=== PATIENT | female | born 1970 | race Asian ===

== ENCOUNTER 2020-07-27 04:43 | Inpatient (IN) | payer OTHER ==
[2020-07-26 15:08] VITALS: BMI 30.7
--- OUTSIDE RECORDS SUMMARY | 2020-07-27 04:48 | XMS ---
:1970 [facility] Care Team Providers Name Role Phone ED STAFF PHYSICIAN, STAFF Unavailable Unavailable ED STAFF PHYSICIANMIRELLA Unavailable Unavailable Re-disclosure Warning The records that you are about to access may contain information from federally- assisted alcohol or drug abuse programs. If such information is present, then the following federally mandated warning applies: This information has been disclosed to you from records protected by federal confidentiality rules (42 CFR part 2). The federal rules prohibit you from making any further disclosure of this information unless further disclosure is expressly permitted by the written consent of the person to whom it pertains or as otherwise permitted by 42 CFR part 2. A general authorization for the release of medical or other information is NOT sufficient for this purpose. The Federal rules restrict any use of the information to criminally investigate or prosecute any alcohol or drug abuse patient.The records that you are about to access may contain highly sensitive health information, the redisclosure of which is protected by Article 27-F of the [place] State Public Health law. If you continue you may haveaccess to information: Regarding HIV / AIDS; Provided by facilities licensed or operated by the [place] Office of Mental Health; or Provided by the [place] Office for People With Developmental Disabilities. If such information is present, then the following [place] mandated warning applies: This information has been disclosed to you from confidential records which are protected by state law. State law prohibits you from making any further disclosure of this information without the specific written consent of the person to whom it pertains, or as otherwise permitted by law. Any unauthorized further disclosure in violation of state law may result in a fine or longterm sentence or both. A general authorization for the release of medical or other information is NOT sufficient authorization for further disclosure. Encounters Encounter Providers Location Date Indications Data Source(s ) Emergency Attender: MIRELLA ED H 01/30/2020 [facility] STAFF 10:35:00 AM EDT Medical C enter PHYSICIANAttender: - 01/30/2020 STAFF ED STAFF 01:25:00 PM EDT PHYSICIANAdmitter: MIRELLA ED STAFF PHYSICIAN Patient discharged. Insurance Providers Payer name Policy type Policy ID Covered Covered libertarian's Policy P zak / Coverage libertarian ID relationship to [facility] orm[facility] type s[facility] LOCAL [id number] - [id number] SP [id number] [facility] [id number] - [id number] SP [id number] [facility] [id number] O [id number] 22 Problems, Conditions, and Diagnoses Code Display Name Description Problem Type Effective Dates Data Source(s) R05 Cough COUGH Diagnosis 01/30/2020 [facility] 10:35:00 AM EDT Medical C enter R50.9 Fever, unspecified FEVER, Diagnosis 01/30/2020 [facility] UNSPECIFIED 10:35:00 AM EDT Medical Center Z00.00 Encounter for ENCNTR FOR Diagnosis 01/30/2020 [facility] adult GENERAL ADULT 10:35:00 AM EDT [facility] medical MEDICAL EXAM W/O examination ABNORMAL FINDINGS without abnormal findings Results ID Date Data Source [id number] 07/22/2020 11:40:00 AM EDT [facility] Name Value Range Interpretation Description Data Sup porting Code Source(s) Document(s ) SARS [facility] coronavirus 2 RNA This lab was ordered by [facility] and reported by [facility]. ID Date Data Source [id number] 07/21/2020 11:17:00 AM EDT [facility] Name Value Range Interpretation Code Description Data Mandie rce(s) Supporting Document(s ) [facility] SARS-CoV-2 TMA PCR [facility] and reported by [facility]. ID Date Data Source [id number] 07/16/2020 10:15:00 AM EDT [facility] Name Value Range Interpretation Description Data Sup porting Code Source(s) Document(s ) SARS [facility] coronavirus 2 RNA This lab was ordered by [facility] and reported by [facility]. ID Date Data Source [id number] 07/07/2020 08:21:00 AM EDT [facility] Name Value Range Interpretation Code Description Data Mandie rce(s) Supporting Document(s ) HOLOGIC [facility] SARS-CoV-2 TMA PCR This lab was ordered by SHELDON YOU[facility] and reported by [facility]. ID Date Data Source [id number] 06/30/2020 10:44:00 AM EDT [facility] Name Value Range Interpretation Code Description Data Mandie rce(s) Supporting Document(s ) HOLOGIC [facility] SARS-CoV-2 TMA PCR This lab was ordered by SHELDON YOUNG and reported by [facility]. ID Date Data Source [id number] 06/23/2020 11:38:00 AM EDT [facility] Name Value Range Interpretation Code Description Data Mandie rce(s) Supporting Document(s ) HOLOGIC [facility] SARS-CoV-2 TMA PCR This lab was ordered by SHELDON YOUNG and reported by [facility]. ID Date Data Source [id number] 06/18/2020 12:00:00 PM EDT [facility] Name Value Range Interpretation Code Description Data Mandie rce(s) Supporting Document(s ) HOLOGIC [facility] SARS-CoV-2 TMA PCR This lab was ordered by SHELDON YOUNG and reported by [facility]. ID Date Data Source [id number] 06/09/2020 10:53:00 AM EDT [facility] Name Value Range Interpretation Code Description Data Mandie rce(s) Supporting Document(s ) HOLOGIC [facility] SARS-CoV-2 TMA PCR This lab was ordered by SHELDON YOUNG and reported by [facility]. ID Date Data Source [id number] 06/02/2020 10:35:00 AM EDT [facility] Name Value Range Interpretation Code Description Data Mandie rce(s) Supporting Document(s ) HOLOGIC [facility] SARS-CoV-2 TMA PCR This lab was ordered by ARCHSTEPH[facility] and reported by [facility]. ID Date Data Source [id number] 05/26/2020 10:36:00 AM EDT [facility] Name Value Range Interpretation Code Description Data Mandie rce(s) Supporting Document(s ) HOLOGIC [facility] SARS-CoV-2 TMA PCR This lab was ordered by [employer]ISA[facility] YOUNG and reported by [facility]. ID Date Data Source [id number] 05/12/2020 10:35:00 AM EDT [facility] Name Value Range Interpretation Code Description Data Mandie rce(s) Supporting Document(s ) SARS-CoV-2 [facility] , RNA This lab was ordered by [facility] and reported by [facility]. ID Date Data Source [id number] 05/05/2020 10:35:00 AM EDT [facility] Name Value Range Interpretation Code Description Data Mandie rce(s) Supporting Document(s ) SARS-CoV-2 [facility] , RNA This lab was ordered by [facility] and reported by [facility]. ID Date Data Source [id number] 04/28/2020 10:40:00 AM EDT [facility] Name Value Range Interpretation Code Description Data Mandie rce(s) Supporting Document(s ) SARS-CoV-2 [facility] , RNA This lab was ordered by [employer]ISAAC YOUNG and reported by [facility]. ID Date Data Source [id number] 04/21/2020 11:35:00 AM EDT [facility] Name Value Range Interpretation Code Description Data Mandie rce(s) Supporting Document(s ) SARS-CoV-2 [facility] , RNA This lab was ordered by [facility] and reported by [facility]. ID Date Data Source [id number] 04/14/2020 11:22:00 AM EDT [facility] Name Value Range Interpretation Code Description Data Mandie rce(s) Supporting Document(s ) SARS-CoV-2 [facility] , RNA This lab was ordered by [facility] and reported by [facility]. ID Date Data Source [id number] 03/28/2020 11:52:00 AM EDT [facility] Name Value Range Interpretation Code Description Data Mandie rce(s) Supporting Document(s ) SARS-CoV-2 [facility] , RNA This lab was ordered by [facility] [facility] and reported by [facility]. ID Date Data Source [id number] 03/24/2020 11:50:00 AM EDT [facility] Name Value Range Interpretation Code Description Data Mandie rce(s) Supporting Document(s ) SARS-CoV-2 [facility] , RNA This lab was ordered by [facility] [facility] and reported by [facility]. ID Date Data Source [id number] 03/20/2020 12:00:00 PM EDT [facility] Name Value Range Interpretation Code Description Data Mandie rce(s) Supporting Document(s ) SARS-CoV-2 [facility] , RNA This lab was ordered by [facility] and reported by [facility]. ID Date Data Source [id number] 03/17/2020 11:44:00 AM EDT [facility] Name Value Range Interpretation Code Description Data Mandie rce(s) Supporting Document(s ) SARS-CoV-2 [facility] , RNA This lab was ordered by [facility] and reported by [facility]. ID Date Data Source [id number] 03/10/2020 04:44:00 AM EDT [facility] Name Value Range Interpretation Code Description Data Mandie rce(s) Supporting Document(s ) SARS-CoV-2 [facility] , RNA This lab was ordered by [facility] and reported by [facility]. ID Date Data Source [id number] 01/30/2020 12:00:00 AM EDT [facility] Name Value Range Interpretation Code Description Data Mandie rce(s) Supporting Document(s ) 2019-nCoV [facility] RNA XXX FABRICIO+probe- Imp This lab was ordered by [facility] and reported by [employer] Procedure Social History Code Duration Value Status Description Data Source(s ) Smoking 01/30/2020 Denies Ever completed Denies Ever Smoked [facility] 11:19:00 AM EDT Smoked Medical C enter Smoking 01/30/2020 Denies Ever completed Denies Ever Smoked [facility] 10:56:00 AM EDT Smoked Medical C enter Smoking 01/30/2020 Denies Ever completed Denies Ever Smoked [facility] 10:41:00 AM EDT Smoked Medical C enter Vital Signs ID Date Data Source UNK Name Value Range Interpretation Code Description Data Source(s) Body weight 65.428601 kg 65.480979 kg [facility] Body temperature 36.310097 36.531088 [facility] Respiratory rate 18 /min 18 /min [facility] Oxygen saturation 100 % 100 % [facility] Jason burch in Arterial blood [facility] by Pulse oximetry Heart rate 99 /min 99 /min [facility] Body height 147.450359 147.346876 cm [facility] cm [facility] Center Diastolic blood 97 mm[Hg] 97 mm[Hg] [facility] pressure [facility] Center Systolic blood 146 mm[Hg] 146 mm[Hg] [facility] pressure [facility] Body mass index 30.3 kg/m2 30.3 kg/m2 [facility] ephs (BMI) [Ratio] Medical Preethi ter
--- NOTE | 2020-07-27 07:20 | HP ---
History & Physical Update - History History: No Change - Physical Physical: No Change - Assessment Assessment: No Change - Plan Plan: No Change (H&P reviwed , no changes)
[2020-07-27] MEDS ORDERED: DEXAMETHASONE SOD PHOSPHATE/PF 10 MG/ML SDV ONE (07:36)
[2020-07-27] MEDS ORDERED: MIDAZOLAM HCL 2 MG/2 ML SINGLE DOSE VIAL ONE ×3 (10:00→11:34)
[2020-07-27] MEDS ORDERED: ROCURONIUM BROMIDE 100 MG/10 ML VIAL ONE ×2 (11:34→12:35)
[2020-07-27] MEDS ORDERED: fentaNYL CITRATE 250 MCG/5 ML VIAL ONE (11:34)
[2020-07-27] MEDS ORDERED: PROPOFOL 20 ML ONE ×2 (11:34→11:56)
[2020-07-27] MEDS ORDERED: DEXAMETHASONE SOD PHOSPHATE 4 MG/1 ML VIAL ONE (11:34)
[2020-07-27] MEDS ORDERED: ceFAZolin SODIUM 1 GM VIAL ONE ×2 (11:51)
[2020-07-27] MEDS ORDERED: ceFAZolin SODIUM 1 GM VIAL IVPB ONE (11:53)
[2020-07-27] MEDS ORDERED: ONDANSETRON 4 MG/2 ML VIAL IVPUSH PRN (12:43)
[2020-07-27] MEDS ORDERED: LACTATED RINGERS SOLUTION 1,000 ML IV SCH (12:45)
[2020-07-27] MEDS ORDERED: HYDROmorphone HCl 2 MG/ML VIAL ONE (13:49)
[2020-07-27] MEDS ORDERED: GLYCOPYRROLATE 0.2 MG/1 ML VIAL ONE (14:18)
[2020-07-27] MEDS ORDERED: NEOSTIGMINE METHYLSULFATE 0.5 MG/ML - 10 ML MDV ONE (14:18)
[2020-07-27] MEDS ORDERED: oxyCODONE HCL 5 MG TABLET PO PRN ×3 (14:56→15:02)
[2020-07-27] MEDS ORDERED: ACETAMINOPHEN 325 MG TABLET (FP) PO PRN (15:06)
[2020-07-27] MEDS: ACETAMINOPHEN 1000 MG/100 ML VIAL (NON FORMULARY) IVPB SCH ×2 (15:07→21:35)
--- NOTE | 2020-07-27 15:08 | OP ---
Operative Note - Note: Operative Date: 07/27/20 Pre-Operative Diagnosis: pelvic pain, fibroids, LT ovarian cyst , abnormal pap Operation: SHIRA, bso Findings: uterus with multiple myoma , LT clear ovarian cyst Surgeon: Oleg Minor Bar Examiner: Janna Méndez Anesthesia: General Specimens Removed: uterus and both tubes and ovaries, LT ovarian cyst Estimated Blood Loss (mls): 200 Drains & Tubes with Location: [place]
[2020-07-27] MEDS ORDERED: HYDROmorphone *PCA* 10MG/50ML DISP.SYRIN PCA SCH (15:30)
[2020-07-27] MEDS ORDERED: CEFAZOLIN 2 GM/D5W 2 GM/50 ML ML IVPB SCH (18:00)
[2020-07-27] MEDS: ATORVASTATIN CA 10 MG TABLET (FP) PO SCH ×2 (21:35→21:41)
[2020-07-27] MEDS: oxyCODONE HCL 10 MG SUSTAINED ACTING TABLET PO SCH ×2 (21:35→21:41)
[2020-07-27] MEDS: CEFAZOLIN 2 GM/D5W 2 GM/50 ML ML IVPB SCH (21:47)
[2020-07-27] MEDS: ONDANSETRON 4 MG/2 ML VIAL IVPUSH PRN (22:43)
[2020-07-27] MEDS: ELECTROLYTE-148 SOLN 1,000 ML IV SCH (23:00)
[2020-07-28] MEDS: ACETAMINOPHEN 1000 MG/100 ML VIAL (NON FORMULARY) IVPB SCH ×2 (03:19→08:47)
[2020-07-28] MEDS: CEFAZOLIN 2 GM/D5W 2 GM/50 ML ML IVPB SCH (05:46)
[2020-07-28] MEDS: ELECTROLYTE-148 SOLN 1,000 ML IV SCH (06:56)
[2020-07-28] MEDS: ONDANSETRON 4 MG/2 ML VIAL IVPUSH PRN (06:57)
[2020-07-28] MEDS ORDERED: BISACODYL 5 MG TABLET.DR (FP) PO PRN (08:10)
--- NOTE | 2020-07-28 08:35 | PN ---
Progress Note (short form) - Note Progress Note: Anesthesia POD#1 S/P SHIRA/BSO under GA and ASSOCIATE PROFESSOR OF LITERACY VSS, she had N/V last night, resolved after taking antiemetic. Using ASSOCIATE PROFESSOR OF LITERACY for pain control. Still have some pain. A/P Dilaudid ASSOCIATE PROFESSOR OF LITERACY is helping her. Continue the ASSOCIATE PROFESSOR OF LITERACY for today. Can be D`d tomorrow. Chyna Steen MD.
[2020-07-28 08:38] LABS: HEMATOCRIT 34.4 % (32.4-45.2); HEMOGLOBIN 11.1 GM/dL (10.7-15.3); MCH 22.7 pg (25.7-33.7); MCHC 32.4 g/dl (32.0-36.0); MEAN PLT VOLUME 10.2 fl (7.5-11.1); PLATELET COUNT 256 K/MM3 (134-434); RBC 4.91 M/mm3 (3.60-5.2); WHITE BLOOD COUNT 18.2 K/mm3 (4.0-10.0)
[2020-07-28 09:09] LABS: BLOOD UREA NITROGEN 10.3 mg/dL (7-18); CREATININE 0.7 mg/dL (0.55-1.3); POTASSIUM 3.9 mmol/L (3.5-5.1)
[2020-07-28] MEDS: ENOXAPARIN NA (PORCINE) 40 MG/0.4 ML DISP.SYRIN SQ SCH (09:30)
[2020-07-28] MEDS: oxyCODONE HCL 10 MG SUSTAINED ACTING TABLET PO SCH ×3 (09:30→22:28)
[2020-07-28] MEDS ORDERED: PCA PUMP NR ONE (09:38)
[2020-07-28] MEDS: ceFAZolin 2 GRAM PREMIX BAG IVPB SCH ×2 (10:05→17:17)
--- NOTE | 2020-07-28 13:05 | PN ---
Progress Note (short form) - Note Progress Note: pod 1. s/p SHIRA BSO , sitting on chair ,comfortable , does not pass gas, voids ok CBC, BMP 07/28/20 08:05 07/28/20 08:05 Last Vital Signs Temp Pulse Resp BP Pulse Ox 98.7 F 89 20 130/69 100 07/28/20 05:46 07/28/20 09:35 07/28/20 09:35 07/28/20 09:35 07/28/20 09:35 abdomen soft, no distension, no cva BS are hypoactive incision dry, clean no calf tenderness no vaginal discharge impression pod 1, leukocytosis no evidence of actice infection plan ambulate , encourage deep breathing will cont iv antibiotic pening repeat cbc in am pain management DVT prophylaxis
[2020-07-28] MEDS ORDERED: IBUPROFEN 600 MG TABLET (FP) PO PRN (13:06)
[2020-07-28] MEDS: oxyCODONE HCL 5 MG TABLET PO PRN (16:06)
[2020-07-28] MEDS: SIMETHICONE 80 MG TAB.CHEW (FP) PO PRN (18:14)
[2020-07-29] MEDS: ceFAZolin 2 GRAM PREMIX BAG IVPB SCH ×2 (01:19→09:43)
[2020-07-29] MEDS: ENOXAPARIN NA (PORCINE) 40 MG/0.4 ML DISP.SYRIN SQ SCH (09:42)
[2020-07-29] MEDS: oxyCODONE HCL 10 MG SUSTAINED ACTING TABLET PO SCH (09:42)
[2020-07-29] MEDS: SIMETHICONE 80 MG TAB.CHEW (FP) PO PRN (09:42)
--- NOTE | 2020-07-29 11:00 | PN ---
Progress Note (short form) - Note Progress Note: Anesthesiology Pain Note Patient taken off CANE BURNER overnight, converted to po analgesia, Pain controlled, dept of anesthesiology will sign off care at this time
[2020-07-29 11:18] VITALS: TEMP 98.7
[2020-07-29] MEDS: oxyCODONE HCL 5 MG TABLET PO PRN (13:29)
[2020-07-29] MEDS ORDERED: BISACODYL 10 MG SUPP.RECT PR ONE (14:45)
[2020-07-29 15:02] VITALS: BP 116/63; PULSE 100
--- NOTE | 2020-07-29 15:07 | PN ---
Progress Note (short form) - Note Progress Note: pod 2 afebrile, ,doing well , ambulating requesting to go home today has declined repeat cbc and BMP gas moving around , no BM Last Vital Signs Temp Pulse Resp BP Pulse Ox 98.7 F 100 H 20 116/63 97 07/29/20 14:57 07/29/20 14:57 07/29/20 14:57 07/29/20 14:57 07/29/20 14:57 abdomen soft, no distension, no cva soft, non tender no calf pain no vaginal discharge pod 2 afebrile declined repeat cbc, aware risks of infection plan d/c home 0n po antibiotics for 3 more days discharge instruction given
--- NOTE | 2020-07-29 15:10 | DS ---
Physical Exam-OFF PREMISE SERVICE REPRESENTATIVE Vital Signs: Vital Signs Temperature 98.7 F 07/29/20 14:57 Pulse Rate 100 H 07/29/20 14:57 Respiratory Rate 20 07/29/20 14:57 Blood Pressure 116/63 07/29/20 14:57 O2 Sat by Pulse Oximetry (%) 97 07/29/20 14:57 Constitutional: Yes: Well Nourished, No Distress, Calm Eyes: Yes: WNL, Conjunctiva Clear, EOM Intact HENT: Yes: WNL, Atraumatic, Normocephalic Neck: Yes: WNL, Supple, Trachea Midline Cardiovascular: Yes: WNL, Regular Rate and Rhythm Respiratory: Yes: WNL, Regular, CTA Bilaterally Gastrointestinal: Yes: WNL ...Rectal Exam: Yes: WNL Renal/: Yes: WNL Breast(s): Yes: WNL Musculoskeletal: Yes: WNL Extremities: Yes: WNL Edema: No Integumentary: Yes: WNL Wound/Incision: Yes: Clean/Dry, Well Approximated, Sutures Intact Neurological: Yes: WNL, Alert, Oriented ...Motor Strength: WNL Psychiatric: Yes: WNL, Alert, Oriented Labs: CBC, BMP 07/28/20 08:05 07/28/20 08:05 Discharge Summary Problems reviewed: Yes Reason For Visit: PELVIC PAIN, LT .ovarian cyst. fibroids uterus Procedures: Principal: SHIRA, HALIMA Hospital Course: no complication Plan of Treatment: follow up office 2 weeks, if fever, pain , not passing gas call Condition: Good - Instructions Diet, Activity, Other Instructions: regular diet , no intercourse , follow up office 2 weeks, if fever, heavy vaginal bleeding ,pain call Referrals: Oleg Minor MD [Staff Physician] - Disposition: HOME - Home Medications Comprehensive Discharge Medication List: Ambulatory Orders Ascorbic Acid [Vitamin C] 1,000 mg PO UTDICT 07/26/20 Simvastatin 10 mg PO UTDICT 07/26/20 Ibuprofen [Motrin -] 600 mg PO QID #28 tablet 07/28/20 oxyCODONE HCL [Roxicodone -] 5 mg PO Q6H PRN #20 tablet MDD 4 07/28/20 Amoxicillin/Potassium Clav [Augmentin 875-125 Tablet] 1 each PO BID #6 tablet 07/29/20 Sennosides [Senna Lax] 8.6 mg PO BID PRN #30 tablet 07/29/20
--- NOTE | 2020-07-29 16:36 | OP ---
DATE OF OPERATION: 07/27/2020 PREOPERATIVE DIAGNOSIS: Pelvic pain, menometrorrhagia, left ovarian cyst, and abnormal Pap smear. POSTOPERATIVE DIAGNOSIS: Pelvic pain, menometrorrhagia, left ovarian cyst, and abnormal Pap smear. PROCEDURE: Total abdominal hysterectomy and bilateral salpingo-oophorectomy. SURGEON: Oleg Minor MD AIR TRAFFIC COORDINATOR: Janna Méndez MD ESTIMATED BLOOD LOSS: 250 mL. FINDINGS: A large clear cyst on the left ovary. Both tubes and ovaries appear to be normal. Uterus was enlarged with multiple myomas. DESCRIPTION OF THE PROCEDURE: Patient was taken to the operating room. Under adequate general anesthesia the abdomen and perineum were prepped and draped. A Pfannenstiel abdominal skin incision was made. Abdominal wall was cut layer by layer until peritoneum was exposed and incised. Upon entering the abdominal cavity upper abdomen was checked and was normal and bowels were packed away. The uterus was enlarged with multiple myomas. There was also a 6-cm left ovarian cyst which appeared to be clear and an intact capsule. Bladder was normal. No cul-de-sac adhesions and no other abnormalities were noted. Then the bowels were packed away and both cornual regions of the uterus were grasped with the clamp Kaitlin and the uterus was delivered. Both round ligaments were identified, clamped with a Yamilet clamp, and then cauterized with bipolar cautery and cut and then the bladder flap was developed and the bladder was pushed down. Then infundibulum ligaments were identified bilaterally and clamped with a Yamilet clamp and cut and the pedicle was first tagged with a 2-0 Vicryl suture bilaterally and then with a LigaSure suture of 2-0 Vicryl bilaterally. At this time the bladder was further pushed down and the uterine artery was identified bilaterally and skeletonized and clamped with [place] clamp, cut, and the clamp replaced with 0-Vicryl suture bilaterally. The paracervical area was clamped with [place] clamps, cut, and the clamp replaced with 0 Vicryl suture bilaterally. Then serial paracervical area clamping was done with a [place] clamp and cut and the clamp replaced with a 0 Vicryl suture bilaterally until the cervicovaginal junction was reached. At this time the suture was removed with the Judy scissors and then the vaginal cuff was sutured with interrupted suture of 0 Vicryl and hemostasis was established. Then there was some bleeding in the posterior bladder area which was irrigated and the area was grasped with a Yamilet clamp and tied with 3-0 Vicryl ties. Then also there was some oozing from the posterior vaginal cuff area which several sutures were applied and hemostasis was established. There was still a little bit of oozing from the bladder which had no definite source of bleeding it was just oozing so Surgicel was placed under the bladder and the posterior cul-de-sac area and no active bleeding was seen at that time. All the lap pad, sponge counts, and instrument counts were correct. Peritoneum was closed with a 0 Vicryl continuous suture. Muscles were brought together with interrupted suture of 0 Vicryl. The fascia was closed with 0 Vicryl continuous suture, subcutaneous fat with interrupted suture of 0 Vicryl, and the skin was closed with 3-0 Vicryl subcuticular continuous suture. The patient tolerated the procedure well and left the OR in good condition. Shantell [id number]
--- NOTE | 2020-07-29 17:23 | PN ---
Progress Note (short form) - Note Progress Note: oxycodone rx has gone to wrong pharmacy , rx resend shey Caba
--- NOTE | 2020-08-06 11:45 | PATH ---
Surgical Pathology Report Patient Name: HUMBERTO MARTINEZ [facility]. Rec. #: [id number] /Age/Gender: 1970 (Age: 50) / F Account: [id number] Location: [address] [place] [address] Taken: 07/27/2020 Received: 07/28/2020 Reported: 08/06/2020 Physicians: Oleg Minor M.D. Specimen(s) Received UTERUS, CERVIX, BILATERAL OVARIES, LEFT OVARIAN CYST Clinical History fibroid uterus, left ovarian cyst, abnormal Pap Final Diagnosis Uterus, cervix, bilateral ovaries, FALLOPIAN TUBES and left ovarian cysT, total abdominal hysterectomy, bilateral salpingectomy and oophorectomy: Uterus (231 g) showing proliferative endometrium, endometrial polyp, adenomyosis and leiomyomas. Cervix showing acute and chronic cervicitis with squamous metaplasia and reactive atypia. (see note) Right ovary showing CYSTIC FOLLICLE AND EPITHELIAL inclusion cyst with mucinous metaplasia. Left fallopian tube with adjacent paratubal cyst (7 cm). Left ovary and right fallopian tube with no pathologic findings. Note: Immunohistochemical stains performed at [place], [place] ([id number]) on blocks 2,8 &11 show the following results: p16 is predominantly negative with a few foci showing patchy weak staining; Ki67 shows rare positive cells in the basal cell layers. These findings support the diagnosis. History of pap smear showing "Atypical Squamous Cells Of Undetermined Significance" from [place], [place] ([id number]) is noted. Electronically Signed Lilly West M.D. Gross Description Received in formalin labeled "uterus, cervix, bilateral ovaries and left ovarian cyst," is a 231 g uterus with an attached cervix and bilateral attached fallopian tubes and ovaries. The specimen measures 10.8 cm from superior to inferior, 7.5 cm from left to right and 5.8 cm from anterior to posterior. The serosa is peace rivas with a bulging 4.5 cm in greatest dimension subserosal nodule adjacent to the right cornua. The attached cervix measures 3.8 cm in length and averages 3 cm in diameter. The ectocervix is peace, smooth and glistening. The endocervix is unremarkable. The endometrial cavity measures 4 cm in length and 3 cm from cornu to cornu. The endometrium displays a 2.3 x 0.7 x 0.5 cm pink-peace, polypoid lesion attached to the posterior aspect. The remaining endometrium is peace-red and measures up to 0.3 cm in thickness. The myometrium displays two intramural nodules measuring 1.5 and 3.2 cm in greatest dimension. The cut surface of the nodules is peace and rubbery with whorled architecture. No areas of hemorrhage or necrosis are identified. The myometrium is peace-pink with whorled, trabeculated architecture, consistent with adenomyosis. The myometrium measures up to 3.3 cm in thickness. The right fimbriated fallopian tube measures 3.5 cm in length. The outer surface is morrissey purple and smooth. Sectioning reveals an unremarkable lumen. The attached right ovary measures 2.9 x 1.8 x 1.8 cm. The outer surface is peace-brown and smooth. Sectioning reveals two cystic structures measuring 1.0 and 1.2 cm in greatest dimension. The remaining ovarian parenchyma is unremarkable. The left fimbriated fallopian tube measures 5.5 cm in length. The fallopian tube is adhered to a 7 cm in greatest dimension intact, fluid filled cystic structure. The outer surface of the cyst is peace and smooth. The cyst contains clear serous fluid. No excrescences are identified. The cut surface of the fallopian tube reveals an unremarkable lumen. The attached left ovary measures 2.5 x 1.5 x 1.3 cm. The outer surface is peace, convoluted and smooth. Sectioning reveals unremarkable ovarian parenchyma. Scarfer sections are submitted in 28 cassettes as follows: 1-1:00 cervix; 2-2:00 cervix; 3-3:00 cervix; 4-4:00 cervix; 5-5:00 cervix; 6-6:00 cervix; 7-7:00 cervix; 8-8:00 cervix; 9-9:00 cervix; 10-10:00 cervix; 11-11:00 cervix; 12-12:00 cervix; 13-59-lxnbjzap endomyometrium; 69-50-dnqkqtgon endometrial polyp; 17-additional posterior endomyometrium; 18-intramural nodules; 76-17-ljixcat subserosal nodule at right cornua; 21-right fallopian tube fimbria; 22-cross sections of right fallopian tube; 23-right ovarian cysts; 24-uninvolved right ovary; 25-left fallopian tube fimbria; 26-cross sections of left fallopian tube with attached cyst; 27-additional sections of left cyst; 28-left ovary. DL07/29/2020 saudi07/29/2020
== END 2020-07-29 18:04 | disposition home or self-care (01) | DRG 743 ==
LOC: J2C 04:43 → J6S 17:04
PROVIDERS: ADMIT Obstetrics & Gynecology; ATTEND Obstetrics & Gynecology
PROC: 0UT70ZZ Resection of Bilateral Fallopian Tubes, Open Approach (ICD-10-PCS; 2020-07-27)
PROC: 0UT20ZZ Resection of Bilateral Ovaries, Open Approach (ICD-10-PCS; 2020-07-27)
PROC: 0UT90ZZ Resection of Uterus, Open Approach (ICD-10-PCS; principal; 2020-07-27 11:00)
DX: D25.9 Leiomyoma of uterus, unspecified (principal); N83.202 Unspecified ovarian cyst, left side; N92.1 Excessive and frequent menstruation with irregular cycle; R10.2 Pelvic and perineal pain
CPT/HCPCS: 36415; 80048; 84703; 85027; 86850; 86900; 86901; 86922; 88307-TC; 94010; 94760; J0131

== ENCOUNTER 2023-02-21 04:24 | Day surgery (SDC) | payer OTHER ==
[2023-02-19 16:20] VITALS: BMI 26.7
[2023-02-21 10:03] VITALS: TEMP 98
[2023-02-21 10:31] VITALS: BP 137/77; PULSE 72; RESP 16
== END 2023-02-21 11:21 | disposition home or self-care (01) ==
LOC: JASU-ENDO 04:24
PROVIDERS: ATTEND Internal Medicine Gastroenterology
PROC: 0DB98ZX Excision of Duodenum, Via Natural or Artificial Opening Endoscopic, Diagnostic (ICD-10-PCS; 2023-02-21)
PROC: 0DB78ZX Excision of Stomach, Pylorus, Via Natural or Artificial Opening Endoscopic, Diagnostic (ICD-10-PCS; 2023-02-21)
PROC: 0DBP8ZX Excision of Rectum, Via Natural or Artificial Opening Endoscopic, Diagnostic (ICD-10-PCS; principal; 2023-02-21 10:00)
DX: Z12.11 Encounter for screening for malignant neoplasm of colon (principal); D12.8 Benign neoplasm of rectum; K21.00 Gastro-esophageal reflux disease with esophagitis, without bleeding; K44.9 Diaphragmatic hernia without obstruction or gangrene; K64.8 Other hemorrhoids
CPT/HCPCS: 88305-TC; 88342-TC